=== PATIENT | male | born 1985 | race Caucasian/White ===

== ENCOUNTER 2017-06-15 13:57 | Day surgery (SDC) | payer BC ==
[~2017-06-15 13:57] MED LIST: CEFAZOLIN 1 GM INJ
[2017-06-15] MEDS ORDERED: BUPIVACAINE 0.5% (SDV) 30 ML INJ (15:21)
[2017-06-15] MEDS ORDERED: LIDOCAINE 1% (MPF) 30 ML INJ (15:21)
[2017-06-15] MEDS ORDERED: METOCLOPRAMIDE 10 MG INJ (15:58)
[2017-06-15] MEDS ORDERED: PROPOFOL 20 ML (15:58)
[2017-06-15] MEDS ORDERED: ROPIVACAINE 0.2% 20 ML VIAL (15:58)
[2017-06-15] MEDS ORDERED: ONDANSETRON 4 MG INJ (15:58)
[2017-06-15] MEDS ORDERED: MIDAZOLAM 1 MG/ML 2 ML INJ (15:58)
[2017-06-15] MEDS ORDERED: FENTAnyl 50 MCG/ML VIAL ×2 (16:00→17:48)
[2017-06-15] MEDS: CEFAZOLIN 2 GM/50 ML (PMX) 50 ML IVPB (16:14)
[2017-06-15] MEDS ORDERED: ONDANSETRON 4 MG INJ IV (17:00)
[2017-06-15] MEDS ORDERED: HYDROmorphONE (0.2 MG/ML) 10ML SYG IV ×2 (17:00)
[2017-06-15] MEDS ORDERED: DIPHENHYDRAMINE 50 MG INJ IV (17:00)
[2017-06-15] MEDS ORDERED: MEPERIDINE 25 MG INJ IV (17:00)
[2017-06-15] MEDS ORDERED: ALBUTEROL 0.083% (NEB) 2.5 MG/3 ML AMP HHN (17:00)
[2017-06-15] MEDS ORDERED: ROCURONIUM 50 MG INJ ×2 (17:11)
[2017-06-15] MEDS ORDERED: KETOROLAC 30 MG INJ (18:01)
[2017-06-15] MEDS ORDERED: NEOSTIGMINE 3 MG/3 ML SYRINGE (18:01)
[2017-06-15] MEDS: HYDROmorphONE (0.2 MG/ML) 10ML SYG IV (19:14)
[2017-06-15] MEDS: OXYCODONE/ACETAMINOPHEN (5/325) TAB PO (19:32)
== END 2017-06-15 19:54 | disposition home or self-care (01) ==
LOC: SDS 13:57
DX: T84.84XA Pain due to internal orthopedic prosthetic devices, implants and grafts, initial encounter (principal); Y83.8 Other surgical procedures as the cause of abnormal reaction of the patient, or of later complication, without mention of misadventure at the time of the procedure; G56.22 Lesion of ulnar nerve, left upper limb; S46.312D Strain of muscle, fascia and tendon of triceps, left arm, subsequent encounter; X58.XXXD Exposure to other specified factors, subsequent encounter; I10 Essential (primary) hypertension; E66.01 Morbid (severe) obesity due to excess calories; Z68.42 Body mass index [BMI] 45.0-49.9, adult
CPT/HCPCS: 20680; 73060; 88300

== ENCOUNTER 2018-03-14 14:20 | Day surgery (SDC) | payer SELFPAY ==
[~2018-03-14 14:20] MED LIST changes: +CEFAZOLIN 2 GM/50 ML (PMX) 50 ML IVPB; +GLYCOPYRROLATE 0.4 MG INJ; +LACTATED RINGER'S 1,000 ML IV*; +NEOSTIGMINE 3 MG/3 ML SYRINGE; +SUCCINYLCHOLINE CHLORIDE 100 MG/5 ML SYG IV
[2018-03-14] MEDS ORDERED: ROCURONIUM 50 MG INJ (16:38)
[2018-03-14] MEDS ORDERED: LIDOCAINE 1% (MDV) 20 ML INJ (16:38)
[2018-03-14] MEDS ORDERED: MIDAZOLAM 1 MG/ML 2 ML INJ (16:38)
[2018-03-14] MEDS ORDERED: PROPOFOL 20 ML (16:38)
[2018-03-14] MEDS ORDERED: DEXAMETHASONE 4 MG/ML 5 ML INJ (16:43)
[2018-03-14] MEDS ORDERED: ROPIVACAINE 0.5 % 30 ML VIAL (16:43)
[2018-03-14] MEDS: POLYMYXIN/BACITRACIN 1L IRRIG (17:48)
[2018-03-14] MEDS ORDERED: EPINEPHrine 100 MCG/10 ML SYG IV (18:29)
[2018-03-14] MEDS ORDERED: KETOROLAC 30 MG INJ (18:29)
[2018-03-14] MEDS ORDERED: PROVENTIL HFA 6.7GM INHALER (18:29)
[2018-03-14] MEDS ORDERED: HYDROmorphONE 1 MG/5 ML IV SYRINGE IV (18:54)
[2018-03-14] MEDS: HYDROmorphONE 1 MG/5 ML IV SYRINGE IV ×2 (18:59→19:05)
[2018-03-14] MEDS ORDERED: OXYCODONE/ACETAMINOPHEN (5/325) TAB PO ×2 (19:00)
== END 2018-03-14 19:38 | disposition home or self-care (01) ==
LOC: SDS 14:20
DX: S46.312D Strain of muscle, fascia and tendon of triceps, left arm, subsequent encounter (principal); X58.XXXD Exposure to other specified factors, subsequent encounter; I10 Essential (primary) hypertension; E66.01 Morbid (severe) obesity due to excess calories; Z68.42 Body mass index [BMI] 45.0-49.9, adult
CPT/HCPCS: 24341